=== PATIENT | female | born 2000 | race African-American/Black ===

== ENCOUNTER 2022-08-03 16:10 | Emergency (ER) | payer SELFPAY ==
--- OUTSIDE RECORDS SUMMARY | 2022-08-03 16:14 | XMS REPORT | Continuity of Care Document ---
:[address] [facility] t Address [address] [place] [id number] Care Team Providers Name Role Phone PCP, PATIENT DOES NOT HAVE A Primary Care Physician JOSSELYN Hazel Attending Clinician Unavailable , DR BALTAZAR Attending Clinician Unavailable JE Attending Clinician Unavailable DEE DEE, DR ANNE Attending Clinician Unavailable DR DELANEY KHAN Admitting Clinician Unavailable JE Admitting Clinician Unavailable DEE DEE, DR ANNE Admitting Clinician Unavailable Payers Payer Name Policy Type Policy Number Effective Date Expiration Date S ource Problems This patient has no known problems. Allergies, Adverse Reactions, Alerts Allergy Allergy Status Severity Reaction(s) Onset Inactive Treating Comm ents Source Name Type Date Date Clinician NO KNOWN Drug Active [facility] ALLERGIE Class ity of [facility] No Known DA Active [facility] s Social History Smoking Status Start Date Stop Date Source Never Smoker [place] [facility] Medications Ordered Filled Start Stop Current Ordering Indication Dosage Frequency Signature Comments Components Source Medication Medication Date Date Medication? Clinician (SIG) Name Name azithromyci azithromyci No azithromyc [place] 250 mg n 250 mg in 250 mg da tablet TAKE tablet TAKE tablet [facility] 2 TABLETS 2 TABLETS TAKE 2 al (500 MG) BY (500 MG) BY TABLETS Health ORAL ROUTE ORAL ROUTE (500 MG) Outre[facility] ONCE DAILY ONCE DAILY BY ORAL h FOR 1 DAY FOR 1 DAY ROUTE ONCE Program THEN 1 THEN 1 DAILY FOR TABLET (250 TABLET (250 1 DAY THEN MG) BY ORAL MG) BY ORAL 1 TABLET ROUTE ONCE ROUTE ONCE (250 MG) DAILY FOR 4 DAILY FOR 4 BY ORAL DAYS DAYS ROUTE ONCE DAILY FOR 4 DAYS Vital Signs Vital Name Observation Time Observation Value Comments Source Height 2020-12-05 02:34:00 160.02 CM Weight 2020-12-05 02:34:00 41.73 KG BP Diastolic 2019-06-16 00:00:00 72 mm[Hg] [place] [facility] Height 2019-06-16 00:00:00 62 [in_i] [facility] BMI (Body Mass 2019-06-16 00:00:00 16.8 kg/m2 [place] [facility] BP Systolic 2019-06-16 00:00:00 108 mm[Hg] [place] [facility] Body Weight 2019-06-16 00:00:00 91.8 [lb_av] [facility] Weight 2019-04-03 14:38:00 44.45 KG Height 2019-04-03 14:38:00 160.02 CM Procedures This patient has no known procedures. 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 [facility] specimen [code = Outreach Pr ogram COVID-19 RNA, QL, curtain mender-PCR, unspecified specimen] Encounters Start End Encounter Admission Attending Care Care Encounter Source Date/Time Date/Time Type Type Clinicians Facility Department ID 2021-10-27 2021-10-27 Emergency X [facility] ERT [id number] [facility] 14:49:00 16:34:00 JOSSELYN mckinney [facility] 2020-12-05 2020-12-05 Outpatient Chilo KHAN [facility] ECC [id number] 02:32:00 04:04:00 WASIM [facility] 2019-08-26 2019-08-26 Outpatient AMBREEN_FAR MEHOP MEHOP [id number] [place] 12:54:00 12:54:00 HANA [id number] [facility] 2019-07-22 2019-07-22 Outpatient AMBREEN_FAR MEHOP MEHOP [id number] [place] 12:45:00 12:45:00 HANA [id number] [facility] 2019-06-17 2019-06-17 Outpatient AMBREEN_FAR MEHOP MEHOP [id number] [place] 01:32:00 01:32:00 HANA [id number] [facility] 2019-06-16 2019-06-16 Outpatient AMBREEN_FAR MEHOP MEHOP [id number] [place] 04:28:00 04:28:00 HANA [id number] [facility] 2019-06-16 2019-06-16 [facility] [place] - [id number] M [place] 00:00:00 00:00:00 Akiko Cheatham MD: [id number] [facility] [employer] [place] copy [place] HOP - [facility] [address], Out[place] [facility] [place] Program [id number] , Ph. 2019-04-03 2019-04-03 Outpatient Chilo FUNEZ DAYANA [facility] [id number] 14:32:00 15:40:00 [facility] 2016-04-08 2016-04-08 Outpatient MHIE MHIE [id number] 15:15:00 15:15:00 06 rosey Mendes 2015-12-06 2015-12-06 Outpatient MHIE MHIE [id number] [facility] 09:15:00 09:15:00 08 rosey Mendes 2015-12-05 2015-12-05 Outpatient MHIE MHIE [id number] [facility] 14:15:00 14:15:00 07 rosey Mendes 2015-10-02 2015-10-02 Outpatient MHIE MHIE [id number] [facility] 10:00:00 10:00:00 04 rosey Mendes 2015-08-01 2015-08-01 Outpatient MHIE MHIE [id number] [facility] 14:00:00 14:00:00 05 rosey Mendes 2015 2015 Outpatient MHIE MHIE [id number] [facility] 13:30:00 13:30:00 02 rosey Mendes 2015-06-28 2015-06-28 Outpatient [facility] [id number] [facility] 14:45:00 14:45:00 03 rosey Mendes Results Test Description Test Time Test Comments Results Result Comments Source SARS-CoV (RAPID ANTIGEN) WH 2020-12-05 03:40:00 Test Item Value Reference Range Interpretation Comme nts SARS-CoV (ANTIGEN) (test code = NEGATIVE NEGATIVE COVAG) COVID AG (test code = COVAGC) This test has been marketed under the FDA Emergency Use Authorization (EUA) to meet challenges of the COVID-19 pandemic. The validation standards normally enforced by the FDA and the [employer] of [employer] (CAP) are more stringent than those required for this test. Therefore, the result should be interpreted with caution and close attention to other clinical and epidemiological data GENERAL CHEMISTRY 13 *OW* [id number] 03:08:00 Test Item Value Reference Range Interpretation Comments GLUCOSE (test code = GGUL) 87 mg/dL 73-118 BUN (test code = GBUN) 10 mg/dL 7-22 CREATININE (test code = GCRE) 0.5 mg/dL 0.6-1.2 L URIC ACID (test code = GUA) 2.9 mg/dL 2.2-6.6 CALCIUM (test code = GCL+) 9.5 mg/dL 8.0-10.3 ALBUMIN (test code = GALB) 4.7 g/dL 3.5-5.5 PROTEIN (test code = GTP) 7.7 g/dL 6.4-8.1 ALT (test code = GALT) 19 U/L 10-47 AST (test code = TATIANA) 33 U/L 11-38 ALK PHOS (test code = GALP) 40 U/L 42-141 L BILI TOTAL (test code = GTBIL) 0.8 mg/dL 0.2-1.6 GGT (test code = GGGT) 11 U/L 5-65 AMYLASE (test code = GAMY) 49 U/L 14-97 Mety[employer]te 8 Panel *OW* [id number] 03:07:00 Test Item Value Reference Range Interpretation Comments GLUCOSE (test code = GGUL) 87 mg/dL 73-118 BUN (test code = GBUN) 10 mg/dL 7-22 CREATININE (test code = GCRE) 0.5 mg/dL 0.6-1.2 L CK TOTAL (test code = GCK) 67 U/L 30-190 SODIUM (test code = GNA+) 137 mmol/L 128-145 POTASSIUM (test code = GK+) 3.4 mmol/L 3.6-5.1 L CHLORIDE (test code = GCL-) 109 mmol/L 98-108 H TCO2 (test code = GTC02) 24 mmol/L 18-33 URINE OW2020-12-05 03:02:00 Test Item Value Reference Range Interpretation Comments PREG UR (test code = PGU) Negative NEGATIVE URINALYSIS W/O MICROSCOPICOW2020-12-05 03:02:00 Test Item Value Reference Range Interpretation Comments COLOR (test code = Yellow YELLOW COLU) CLARITY (test code = Clear CLEAR CLA) GLUCOSE UR (test Negative NEGATIVE code = UA GLUCOSE) BILI UR (test code = Negative NEGATIVE BILE) KETONES UR (test 4+ NEGATIVE A code = MIKAYLA) SP GRAVITY (test >=1.030 1.005-1.030 code = SPGR) PH UR (test code = 7.0 4.5-8.0 PH) PROTEIN UR (test Negative NEGATIVE code = PU) NITRITE UR (test Negative NEGATIVE code = NITRITE) UROBIL UR (test code 4.0 E.U./dL = GUROQ) UROBIL UR (test code UROBILINOGEN = GUROQC) REFERENCE RANGE 0.2 - 1.0 EU/dL BLOOD UR (test code Negative NEGATIVE = UA BLOOD) LEUK ES UR (test Negative NEGATIVE code = LEUK) CBC (INCLUDES AUTOMATED DIFFERENTIAL) *2020-12-05 03:01:00 Test Item Value Reference Range Interpretation Comments WBC (test code = WBC) 8.3 10\S\3/uL 4.5-11.0 RBC (test code = RBC) 4.26 10\S\6/uL 4.30-5.70 L HGB (test code = HBG) 12.3 g/dL 12.0-15.5 HCT (test code = HCT) 39.0 % 35.0-44.0 MCV (test code = MCV) 91.6 fL 81.0-99.0 MCH (test code = MCH) 28.9 pg 27.0-31.0 MCHC (test code = MCHC) 31.5 g/dL 32.0-36.0 L RDW (test code = RDW) 12.6 % 11.5-14.5 PLT (test code = PLT) 201 10\S\3/uL 130-400 MPV (test code = OMPV) 8.7 fL 6.2-10.2 NEUTROP # (test code = NE#) 5.1 10\S\3/uL 1.6-8.0 LYMPH # (test code = LY#) 2.7 10\S\3/uL 1.1-3.5 MID # (test code = GMID#) 0.6 10\S\3/uL 0.0-1.1 GRAN % (test code = GRA%) 60.9 % 35.0-73.0 LYMPH % (test code = GLY%) 32.0 % 20.0-55.0 MID % (test code = GMID%) 7.1 % 0.0-10.0 rapid flu (A+B)2019-06-16 14:34:29 Test Item Value Reference Range Interpretation Comments Flu (test code = Flu) [facility] *OW*2019-04-03 15:36:38Xray Chest 2 viewsLocation Code: [id number]: None availableCLINICAL HISTORY: Cough.Findings: The cardiomediastinal silhouette is within normal limits. No evidence ofpulmonary edema, pleural effusionor consolidation is visualized.IMPRESSION: No plain radiographic evidence of an acute cardiopulmonary abnormalityTROPONIN I OW2019-04-03 15:16:00 Test Item Value Reference Range Interpretation Comments TROPONIN I (test code = A84) <0.050 ng/mL 0.000-0.050 MetyLyte 8 Panel *OW* [id number] 15:16:00 Test Item Value Reference Range Interpretation Comments GLUCOSE (test code = GGUL) 103 mg/dL 73-118 BUN (test code = GBUN) 10 mg/dL 7-22 CREATININE (test code = GCRE) 0.7 mg/dL 0.6-1.2 CK TOTAL (test code = GCK) 69 U/L 30-190 SODIUM (test code = GNA+) 137 mmol/L 128-145 POTASSIUM (test code = GK+) 3.3 mmol/L 3.6-5.1 L CHLORIDE (test code = GCL-) 98 mmol/L 98-108 TCO2 (test code = GTC02) 27 mmol/L 18-33 DRUGS OF ABUSE*OW*2019-04-03 15:11:00 Test Item Value Reference Range Interpretation Comments DRUG SCRN (test code URINE DRUG SCREEN = HDOA) This is an unconfirmed screening result and should not be used for non-medical purposes PHENCYCLID (test Negative NEGATIVE code = GPCP) BENZODIAZE (test Negative NEGATIVE code = GBZO) COCAINE (test code = Negative NEGATIVE GCOC) AMPHETAMIN (test Negative NEGATIVE code = GAMP) THC (test code = Positive NEGATIVE A GTHC) OPIATES (test code = Negative NEGATIVE MARA) BARBITURAT (test Negative NEGATIVE code = GBAR) TCA (test code = Negative NEGATIVE GTCA) DOAH (test code = URINE DRUG DOAH) SCREEN CUT OFF VALUES Amphetamines 1000 ng/mL Barbituates 300 ng/mL Benzodiazepines 300 ng/mL Cocaine 300 ng/mL Opiates 300 ng/mL Phencyclidine 25 ng/mL THC 50 ng/mL Tricyclic Antidepressants 1000 ng/mL URINE OW2019-04-03 15:04:00 Test Item Value Reference Range Interpretation Comments PREG UR (test code = PGU) Negative NEGATIVE INFLUENZA A AND B OW2019-04-03 15:02:00 Test Item Value Reference Range Interpretation Comments INFLUENZ A (test code = INFA) NEGATIVE NEGATIVE INFLUENZ B (test code = INFB) POSITIVE NEGATIVE A URINALYSIS W/O MICROSCOPICOW2019-04-03 14:59:00 Test Item Value Reference Range Interpretation Comments COLOR (test code = Yellow YELLOW COLU) CLARITY (test code = SLT HAZY CLEAR A CLA) GLUCOSE UR (test Negative NEGATIVE code = UA GLUCOSE) BILI UR (test code = 1+ NEGATIVE A BILE) KETONES UR (test 3+ NEGATIVE A code = MIKAYLA) SP GRAVITY (test >=1.030 1.005-1.030 code = SPGR) PH UR (test code = 5.5 4.5-8.0 PH) PROTEIN UR (test 1+ NEGATIVE A code = PU) NITRITE UR (test Negative NEGATIVE code = NITRITE) UROBIL UR (test code 1.0 E.U./dL = GUROQ) UROBIL UR (test code UROBILINOGEN = GUROQC) REFERENCE RANGE 0.2 - 1.0 EU/dL BLOOD UR (test code 2+ NEGATIVE A = UA BLOOD) LEUK ES UR (test Negative NEGATIVE code = LEUK) CBC (INCLUDES AUTOMATED DIFFERENTIAL) *2019-04-03 14:56:00 Test Item Value Reference Range Interpretation Comments WBC (test code = WBC) 4.0 10\S\3/uL 4.5-13.0 L RBC (test code = RBC) 4.23 10\S\6/uL 4.30-5.70 L HGB (test code = HBG) 12.2 g/dL 12.0-15.5 HCT (test code = HCT) 38.2 % 35.0-44.0 MCV (test code = MCV) 90.2 fL 81.0-99.0 MCH (test code = MCH) 28.8 pg 27.0-31.0 MCHC (test code = MCHC) 31.9 g/dL 32.0-36.0 L RDW (test code = RDW) 13.4 % 11.5-14.5 PLT (test code = PLT) 140 10\S\3/uL 130-400 MPV (test code = OMPV) 8.7 fL 6.2-10.2 NEUTROP # (test code = NE#) 2.6 10\S\3/uL 1.6-8.0 LYMPH # (test code = LY#) 1.0 10\S\3/uL 1.1-3.5 L MID # (test code = GMID#) 0.4 10\S\3/uL 0.0-1.1 GRA % (test code = GRA%) 64.8 % 35.0-73.0 LYMPH % (test code = GLY%) 24.6 % 20.0-55.0 MID % (test code = GMID%) 10.6 % 0.0-10.0 H
[2022-08-03] MEDS ORDERED: DICYCLOMINE HCL 20 MG/2 ML AMP IM ONE (16:49)
[2022-08-03] MEDS ORDERED: NA CHLORIDE 0.9% 1,000 ML ONE (16:49)
[2022-08-03] MEDS ORDERED: ONDANSETRON 4 MG/2 ML VIAL ONE (16:49)
[2022-08-03 17:08] LABS: Absolute Lymphocytes (CBC) 0.3 K/uL (0.7-4.9); Hematocrit 42.2 % (36.0-45.0); Lymphocytes % 3.5 % (15.3-44.8); MCV 89.5 fL (80-100); MPV 9.2 fL (7.6-11.3); RBC Red Blood Cell Count 4.71 M/uL (3.86-4.86)
[2022-08-03 17:23] LABS: Albumin 4.8 g/dL (3.4-5.0); Potassium 3.5 mEq/L (3.5-5.1)
[2022-08-03 17:47] LABS: Specific Gravity 1.026 (1.005-1.030); Urine Bacteria None Seen /HPF (<20); Urine Bilirubin NEGATIVE (Negative); Urine Blood Negative (Negative); Urine Clarity Clear (Clear); Urine Color Light-Yellow (Yellow); Urine Glucose NEGATIVE (Negative); Urine Mucus Slight /HPF (None Seen); Urine Protein TRACE (Negative); Urine RBC None Seen /HPF (None Seen); Urine Urobilinogen Normal (Normal); Urine pH 6.5 (5.0-7.0)
[2022-08-03] MEDS ORDERED: METOCLOPRAMIDE 10 MG/2mL INJ ONE (18:16)
[2022-08-03] MEDS ORDERED: DIPHENHYDRAMINE 50 MG/ML VIAL ONE (18:16)
[2022-08-03] MEDS ORDERED: NA CHLORIDE 0.9% 0 ML ONE (18:17)
--- NOTE | 2022-08-03 19:16 | EDPHYS ---
Physician Documentation [facility] Name: Kathrin Gayle Age: 22 yrs Sex: Female : 2000 Arrival Date: 08/03/2022 Time: 16:10 Bed 17 Private MD: ED Physician Raza Christie HPI: 08/03 17:03 This 22 yrs old Black Female presents to ER via Ambulatory with complaints of Abdominal rt Pain, Nausea/Vomiting. 17:03 Patient presents to the ED with nausea, vomiting, diarrhea, generalized abdominal pain rt starting about 8 AM this morning. Patient went to bed feeling well. Patient states that the symptoms have been waxing and waning. She denies other acute complaints at this time. Symptoms are moderate in severity, aching nature, nonradiating, no other aggravating or alleviating factors.. 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 - Social history:: Smoking status: Patient uses street drugs, marijuana. - Family history:: not pertinent. ROS: 17:03 Constitutional: Negative for fever, chills, and weight loss, Eyes: Negative for injury, rt pain, redness, and discharge, Cardiovascular: Negative for chest pain, palpitations, and edema, Respiratory: Negative for shortness of breath, cough, wheezing, and pleuritic chest pain, MS/Extremity: Negative for injury and deformity, Skin: Negative for injury, rash, and discoloration, Neuro: Negative for headache, weakness, numbness, tingling, and seizure, Psych: Negative for depression, anxiety, suicide ideation, homicidal ideation, and hallucinations. 17:03 Abdomen/GI: Positive for abdominal pain, nausea, vomiting, and diarrhea. Exam: 17:03 Constitutional: This is a well developed, well nourished patient who is awake, alert, rt and in no acute distress. Head/Face: Normocephalic, atraumatic. Chest/axilla: Normal chest wall appearance and motion. Nontender with no deformity. No lesions are appreciated. Cardiovascular: Regular rate and rhythm with a normal S1 and S2. No gallops, murmurs, or rubs. Normal PMI, no JVD. No pulse deficits. Respiratory: Lungs have equal breath sounds bilaterally, clear to auscultation and percussion. No rales, rhonchi or wheezes noted. No increased work of breathing, no retractions or nasal flaring. Skin: Warm, dry with normal turgor. Normal color with no rashes, no lesions, and no evidence of cellulitis. MS/ Extremity: Pulses equal, no cyanosis. Neurovascular intact. Full, normal range of motion. Neuro: Awake and alert, GCS 15, oriented to person, place, time, and situation. Cranial nerves II-XII grossly intact. Motor strength 5/5 in all extremities. Sensory grossly intact. Cerebellar exam normal. Normal gait. Psych: Awake, alert, with orientation to person, place and time. Behavior, mood, and affect are within normal limits. 17:03 Abdomen/GI: Mild nonfocal tenderness diffusely without rebound, guarding, distention. Vital Signs: 16:19 BP 114 / 88; Pulse 109; Resp 16; Temp 98.5; Pulse Ox 100% on R/A; Weight 45.36 kg; iw Height 5 ft. 2 in. ; Pain 7/10; 17:07 BP 111 / 75; Pulse 88; Resp 14; Pulse Ox 100% on R/A; vg1 18:04 BP 112 / 64; Pulse 83; Resp 16; Pulse Ox 100% ; vg1 16:19 Body Mass Index 18.29 (45.36 kg, 157.48 cm) iw 16:19 Pain Scale: Adult iw MDM: 16:23 Patient medically screened. rt 19:16 Differential diagnosis: gastritis, pancreatitis, appendicitis, gastroenteritis. Data rt reviewed: vital signs, nurses notes, lab test result(s), radiologic studies. Consideration of Admission/Observation Escalation of care including admission/observation considered. I considered the following discharge prescriptions or medication management in the emergency department Medications were administered in the Emergency Department. See MAR. Test considered but Not performed: CT: Stable labs, no focal abdominal tenderness, resolution of symptoms with medications, do not believe that CT scan is indicated at this time. The patient was informed to return if she develops worsening symptoms for recheck of possible appendicitis although I do believe that appendicitis is very unlikely at this time.. Counseling: I had a detailed discussion with the patient and/or guardian regarding: the historical points, exam findings, and any diagnostic results supporting the discharge/admit diagnosis, lab results, radiology results, the need for outpatient follow up, to return to the emergency department if symptoms worsen or persist or if there are any questions or concerns that arise at home. 08/03 16:31 Order name: CBC with Diff; Complete Time: 17:48 rt 08/03 16:31 Order name: CMP; Complete Time: 17:48 rt 08/03 16:31 Order name: Lipase; Complete Time: 17:48 rt 08/03 16:31 Order name: UAM; Complete Time: 17:48 rt 08/03 16:56 Order name: Test, Serum; Complete Time: 17:48 rt 08/03 18:02 Order name: PO challenge; Complete Time: 18:48 vg1 Administered Medications: 17:00 Drug: NS 0.9% IV 1000 ml Route: IV; Rate: 1 bolus; Site: right antecubital; vg1 18:49 Follow up: IV Status: Completed infusion; IV Intake: 1000ml vg1 17:01 Drug: Ondansetron IVP 4 mg Route: IVP; Site: right antecubital; vg1 18:05 Follow up: Response: No adverse reaction; No change in condition vg1 17:05 Drug: Dicyclomine IM 20 mg Route: IM; Site: right gluteus; vg1 18:05 Follow up: Response: No adverse reaction; Pain is decreased vg1 18:13 Not Given (Other Intervention Used): NS 0.9% IV 100 ml IV at bolus once vg1 18:16 Drug: diphenhydrAMINE IVP 25 mg Route: IVP; Site: right antecubital; vg1 18:48 Follow up: Response: No adverse reaction vg1 18:18 Drug: metoCLOPramide IVP 10 mg {Note: placed in NS bolus with 200 mL remaining.} Route: vg1 IVP; Site: right antecubital; 18:49 Follow up: Response: No adverse reaction; Nausea is decreased vg1 Disposition Summary: 08/03/22 19:15 Discharge Ordered Location: Home rt Problem: new rt Symptoms: are resolved rt Condition: Stable rt Diagnosis - Nausea with vomiting, unspecified rt Followup: rt - With: Private Physician - When: 2 - 3 days - Reason: Discharge Instructions: - Discharge Summary Sheet rt - Nausea and Vomiting, Adult rt Forms: - Medication Reconciliation Form rt - Thank You Letter rt - Antibiotic Education rt - Prescription Opioid Use rt Prescriptions: - Reglan 10 mg Oral Tablet - take 1 tablet by ORAL route every 6 hours take 30 minutes before meals and at rt bedtime; 20 tablet; Refills: 0, Product Selection Permitted Signatures: Dispatcher [employer] Haylie Stuart RN RN iw Marla Irvin RN RN vg1 Raza Christie MD MD rt Corrections: (The following items were deleted from the chart) 17:04 16:32 Test, Urine+UC.LAB.BRZ ordered. EDAR EDMS
--- NOTE | 2022-08-03 19:16 | ER ---
Nurse's Notes [facility] Name: Kathrin Gayle Age: 22 yrs Sex: Female : 2000 Arrival Date: 08/03/2022 Time: 16:10 Bed 17 Private MD: Diagnosis: Nausea with vomiting, unspecified Presentation: 08/03 16:19 Chief complaint: Patient states: vomiting since 0800 today , having really bad stomach iw pains, and feels weak , pain is in lower abd radiating to back and sides , denies urinary s/s, reports one episode of diarrhea. Coronavirus screen: At this time, the client does not indicate any symptoms associated with coronavirus-19. Ebola Screen: Patient negative for fever greater than or equal to 101.5 degrees Fahrenheit, and additional compatible Ebola Virus Disease symptoms Patient denies exposure to infectious person. Patient denies travel to an Ebola-affected area in the 21 days before illness onset. No symptoms or risks identified at this time. Risk Assessment: Do you want to hurt yourself or someone else? Patient reports no desire to harm self or others. Onset of symptoms was August 03, 2022. 16:19 Method Of Arrival: Ambulatory iw 16:19 Acuity: MARIAM 3 iw HEAD OF MUSIC: 16:20 LMP 07/08/2022 iw Historical: - Allergies: 16:20 No Known Allergies; iw - Home Meds: 16:20 None [Active]; iw - PMHx: 16:20 None; iw - PSHx: 16:20 None; iw - Immunization history:: Adult Immunizations not immunized, . - Social history:: Smoking status: Patient uses street drugs, marijuana. - Family history:: not pertinent. Screenin:07 [facility] ED Fall Risk Assessment (Adult) History of falling in the last 3 months, vg1 including since admission No falls in past 3 months (0 pts). Abuse screen: Denies threats or abuse. Denies injuries from another. Nutritional screening: No deficits noted. Tuberculosis screening: No symptoms or risk factors identified. Assessment: 17:07 General: Appears in no apparent distress. uncomfortable, Behavior is calm, cooperative. vg1 Pain: Complains of pain in right lower quadrant and left lower quadrant Pain currently is 8 out of 10 on a pain scale. Pain began this morning. Neuro: Level of Consciousness is awake, alert, obeys commands, Oriented to person, place, time, situation, Moves all extremities. Respiratory: Airway is patent Respiratory effort is even, unlabored. GI: Bowel sounds present X 4 quads. Abdomen is tender to palpation in right lower quadrant and left lower quadrant Reports nausea, vomiting, since this morning 0800. : No signs and/or symptoms were reported regarding the genitourinary system. Musculoskeletal: Circulation, motion, and sensation intact. 18:04 Reassessment: Patient appears in no apparent distress at this time. No changes from vg1 previously documented assessment. Patient and/or family updated on plan of care and expected duration. Pain level reassessed. Patient is alert, oriented x 3, equal unlabored respirations, skin warm/dry/pink. 18:04 Pain: Pain currently is 5 out of 10 on a pain scale. vg1 19:12 Reassessment: Patient appears in no apparent distress at this time. Patient and/or vg1 family updated on plan of care and expected duration. Pain level reassessed. Patient is alert, oriented x 3, equal unlabored respirations, skin warm/dry/pink. Patient denies pain at this time. Vital Signs: 16:19 BP 114 / 88; Pulse 109; Resp 16; Temp 98.5; Pulse Ox 100% on R/A; Weight 45.36 kg; iw Height 5 ft. 2 in. ; Pain 7/10; 17:07 BP 111 / 75; Pulse 88; Resp 14; Pulse Ox 100% on R/A; vg1 18:04 BP 112 / 64; Pulse 83; Resp 16; Pulse Ox 100% ; vg1 16:19 Body Mass Index 18.29 (45.36 kg, 157.48 cm) iw 16:19 Pain Scale: Adult iw ED Course: 16:15 Patient arrived in ED. ts1 16:20 Triage completed. iw 16:20 Arm band placed on. iw 16:22 Raza Christie MD is Attending Physician. rt 16:40 Marla Irvin, RN is Primary Nurse. vg1 16:57 CBC with Diff Sent. mm9 16:57 CMP Sent. mm9 16:57 Lipase Sent. mm9 16:58 Initial lab(s) drawn, by md, sent to lab. Inserted saline lock: 22 gauge in right mm9 antecubital area, using aseptic technique. Blood collected. 16:59 Patient has correct armband on for positive identification. Bed in low position. Call mm9 light in reach. Side rails up X 1. Adult w/ patient. Warm blanket given. Pulse ox on. NIBP on. 17:00 Test, Serum Sent. mm9 17:07 No provider procedures requiring assistance completed. vg1 17:35 UAM Sent. mm9 17:35 Urine collected: clean catch specimen, cloudy. mm9 19:21 IV discontinued, intact, bleeding controlled, No redness/swelling at site. Pressure vg1 dressing applied. Administered Medications: 17:00 Drug: NS 0.9% IV 1000 ml Route: IV; Rate: 1 bolus; Site: right antecubital; vg1 18:49 Follow up: IV Status: Completed infusion; IV Intake: 1000ml vg1 17:01 Drug: Ondansetron IVP 4 mg Route: IVP; Site: right antecubital; vg1 18:05 Follow up: Response: No adverse reaction; No change in condition vg1 17:05 Drug: Dicyclomine IM 20 mg Route: IM; Site: right gluteus; vg1 18:05 Follow up: Response: No adverse reaction; Pain is decreased vg1 18:13 Not Given (Other Intervention Used): NS 0.9% IV 100 ml IV at bolus once vg1 18:16 Drug: diphenhydrAMINE IVP 25 mg Route: IVP; Site: right antecubital; vg1 18:48 Follow up: Response: No adverse reaction vg1 18:18 Drug: metoCLOPramide IVP 10 mg {Note: placed in NS bolus with 200 mL remaining.} Route: vg1 IVP; Site: right antecubital; 18:49 Follow up: Response: No adverse reaction; Nausea is decreased vg1 Medication: 17:07 VIS not applicable for this client. vg1 Intake: 18:49 IV: 1000ml; Total: 1000ml. vg1 Outcome: 19:15 Discharge ordered by . rt 19:20 Discharged to home ambulatory, with friend. vg1 19:20 Condition: good 19:20 Discharge instructions given to patient, Instructed on discharge instructions, follow up and referral plans. medication usage, Demonstrated understanding of instructions, follow-up care, medications, Prescriptions given X 1. 19:21 Patient left the ED. vg1 Signatures: Haylie Billings RN RN iw Garcia, Victoria, RN RN vg1 Bebe Tran mm9 Raza Christie MD MD rt Zenia Celeste PAS PAS ts1 Corrections: (The following items were deleted from the chart) 18:04 17:07 BP 111 / 75; Pulse 14bpm; Resp 88bpm; Pulse Ox 100% RA; vg1 vg1
[2022-08-03 19:47] VITALS: TEMP 98.5; O2SAT 100
[2022-08-03 19:50] VITALS: BP 112/64
== END 2022-08-03 19:21 | disposition home or self-care (01) ==
LOC: ER 16:10
DX: R11.2 Nausea with vomiting, unspecified (principal); R10.84 Generalized abdominal pain; R19.7 Diarrhea, unspecified
CPT/HCPCS: 36415; 80053; 81001; 83690; 84703; 85025; J0500; J1200; J2405; J2765; J7030

== ENCOUNTER 2024-02-24 20:55 | Emergency (ER) | payer OTHER, SELFPAY ==
--- NOTE | 2024-02-24 22:26 | RAD REPORT ---
EXAM:OB Limited . CLINICAL HISTORY: with abdominal pain. 34 weeks EGA, baby no moving TECHNIQUE: Limited OB ultrasound performed. FINDINGS: A single cephalic fetus is identified. Heart rate is normal 159 BPM. Estimated age is 34 weeks 0 days. Amniotic fluid index is normal measuring 11 cm. Largest pocket measures 7.1 cm. Placenta appears grade 1 anterior. Cervix measures 4 cm and is closed. IMPRESSION: Single live intrauterine gestation as detailed. No acute abnormality detected.
--- NOTE | 2024-02-24 22:35 | ER ---
Nurse's Notes [facility] Name: Kathrin Gayle Age: 23 yrs Sex: Female : 2000 Arrival Date: 02/24/2024 Time: 20:55 Bed 10 Private MD: Diagnosis: at 34-week gestation , Discomfort of Presentation: 02/23 21:19 Chief complaint: Patient states: has not felt baby all day. Last time I felt baby move tm6 was last night. Coronavirus screen: Client denies travel out of the [place] in the last 14 days. Ebola Screen: Patient negative for fever greater than or equal to 101.5 degrees Fahrenheit, and additional compatible Ebola Virus Disease symptoms Patient denies exposure to infectious person. Patient denies travel to an Ebola-affected area in the 21 days before illness onset. No symptoms or risks identified at this time. Initial Sepsis Screen: Does the patient meet any 2 criteria? No. Patient's initial sepsis screen is negative. Does the patient have a suspected source of infection? No. Patient's initial sepsis screen is negative. Risk Assessment: Do you want to hurt yourself or someone else? Patient reports no desire to harm self or others. Onset of symptoms was February 24, 2024. 21:19 Method Of Arrival: Ambulatory tm6 21:19 Acuity: MARIAM 3 tm6 Triage Assessment: 21:19 General: Appears in no apparent distress. Behavior is calm, cooperative. Pain: Denies tm6 pain. EENT: No signs and/or symptoms were reported regarding the EENT system. Neuro: Level of Consciousness is awake, alert, obeys commands, Oriented to person, place, time, situation. Cardiovascular: Patient's skin is warm and dry. Respiratory: Airway is patent Respiratory effort is even, unlabored, Respiratory pattern is regular, symmetrical. GI: Abdomen is round. : Reports not feeling baby move all day. Derm: No signs and/or symptoms reported regarding the dermatologic system. Musculoskeletal: No signs and/or symptoms reported regarding the musculoskeletal system. 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 - Infectious Disease History:: Denies. - Social history:: Smoking status: Patient denies any tobacco usage or history of. - Family history:: not pertinent. Screenin:47 [facility] ED Fall Risk Assessment (Adult) History of falling in the last 3 months, kl including since admission No falls in past 3 months (0 pts) Confusion or Disorientation No (0 pts) Intoxicated or Sedated No (0 pts) Impaired Gait Yes (1 pt) Mobility Assist Device Used No (0 pt) Altered Elimination No (0 pt) Score/Fall Risk Level 0 - 2 = Low Risk Oriented to surroundings, Maintained a safe environment. Abuse screen: Denies threats or abuse. Nutritional screening: No deficits noted. Tuberculosis screening: No symptoms or risk factors identified. Assessment: 22:47 General: Appears in no apparent distress. Behavior is calm, cooperative. Pain: Denies kl pain. Neuro: No deficits noted. Neuro: No deficits noted. Cardiovascular: No deficits noted. Respiratory: No deficits noted. GI: No deficits noted. No signs and/or symptoms were reported involving the gastrointestinal system. Vital Signs: 21:18 BP 119 / 77; Pulse 89; Resp 18; Temp 98.4(O); Pulse Ox 99% on R/A; MAP 89 mmHg; Weight tm6 49.9 kg; Height 5 ft. 3 in. ; Pain 0/10; 21:18 Body Mass Index 19.49 (49.90 kg, 160.02 cm) tm6 21:18 Pain Scale: Adult tm6 Miguel Angel Coma Score: 12/12 22:13 Eye Response: spontaneous(4). Motor Response: obeys commands(6). Verbal Response: sp4 oriented(5). Total: 15. ED Course: 02/23 20:59 Patient arrived in ED. jj6 21:14 Rikki Burrell MD is Attending Physician. sp4 21:19 Triage completed. tm6 21:19 Arm band placed on right wrist. tm6 22:17 US OB Limited In Process Unspecified. EDMS 22:48 No provider procedures requiring assistance completed. Patient did not have IV access kl during this emergency room visit. Administered Medications: No medications were administered Medication: 22:48 VIS not applicable for this client. kl Outcome: 22:35 Discharge ordered by . sp4 22:48 Discharged to home ambulatory, kl 22:48 Condition: stable 22:48 Discharge instructions given to patient, Instructed on discharge instructions, follow up and referral plans. Demonstrated understanding of instructions, follow-up care, 22:48 Patient left the ED. kl Signatures: Dispatcher [employer] EDLisy Tran, RN RN Janki Solitarioj6 Rikki Burrell MD MD sp4 James Hale RN RN tm6
--- NOTE | 2024-02-24 22:35 | EDPHYS ---
Physician Documentation [facility] Name: Kathrin Montoya Age: 23 yrs Sex: Female : 2000 Arrival Date: 02/24/2024 Time: 20:55 Bed 10 Private MD: ED Physician Rikki Burrell HPI: 02/23 21:14 This 23 yrs old Black Female presents to ER via Unassigned with complaints of 34 WKS sp4 GESTATION, HASN'T FELT BABY MOVE ALL DAY. 02/24 22:13 Patient is 22-year-old female at 34 weeks 0 days EGA presents with concern for sp4 baby not moving. Patient reports she has not felt any movement since yesterday evening. Denied any other symptoms denied vaginal bleeding or fluid leak. 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 - Infectious Disease History:: Denies. - Social history:: Smoking status: Patient denies any tobacco usage or history of. - Family history:: not pertinent. ROS: 02/24 22:13 Constitutional: Negative for fever, chills, and weight loss, sp4 All other systems are negative, Exam: 22:13 Constitutional: This is a well developed, well nourished patient who is awake, alert, sp4 and in no acute distress. Head/Face: Normocephalic, atraumatic. Eyes: Pupils equal round and reactive to light, extra-ocular motions intact. Lids and lashes normal. Conjunctiva and sclera are not injected. Cornea within normal limits. Periorbital areas with no swelling, redness, or edema. ENT: Nares patent. No nasal discharge, no septal abnormalities noted. Tympanic membranes are normal and external auditory canals are clear. Oropharynx with no redness, swelling, or masses, exudates, or evidence of obstruction, uvula midline. Mucous membranes moist. Neck: Trachea midline, no thyromegaly or masses palpated, and no cervical lymphadenopathy. Supple, full range of motion without nuchal rigidity, or vertebral point tenderness. Chest/axilla: Normal chest wall appearance and motion. Nontender with no deformity. No lesions are appreciated. Cardiovascular: Regular rate and rhythm with a normal S1 and S2. No gallops, murmurs, or rubs. Normal PMI, no JVD. No pulse deficits. Respiratory: Lungs have equal breath sounds bilaterally, clear to auscultation and percussion. No rales, rhonchi or wheezes noted. No increased work of breathing, no retractions or nasal flaring. Abdomen/GI: Soft, with normal bowel sounds. No distension or tympany. No guarding or rebound. No evidence of tenderness throughout. Positive for gravid uterus Back: No spinal tenderness. No costovertebral tenderness. Skin: Warm, dry with normal turgor. Normal color with no rashes, no lesions, and no evidence of cellulitis. MS/ Extremity: Pulses equal, no cyanosis. Neurovascular intact. Full, normal range of motion. Neuro: Awake and alert, GCS 15, oriented to person, place, time, and situation. Cranial nerves II-XII grossly intact. Motor strength 5/5 in all extremities. Sensory grossly intact. Psych: Awake, alert, with orientation to person, place and time. Behavior, mood, and affect are within normal limits Vital Signs: 02/23 21:18 BP 119 / 77; Pulse 89; Resp 18; Temp 98.4(O); Pulse Ox 99% on R/A; MAP 89 mmHg; Weight tm6 49.9 kg; Height 5 ft. 3 in. ; Pain 0/10; 21:18 Body Mass Index 19.49 (49.90 kg, 160.02 cm) tm6 21:18 Pain Scale: Adult tm6 Miguel Angel Coma Score: 02/24 22:13 Eye Response: spontaneous(4). Motor Response: obeys commands(6). Verbal Response: sp4 oriented(5). Total: 15. MDM: 02/23 21:15 Medical Screening Exam initiated sp4 22:29 ED course: Name: KATHRIN MONTOYA Acct Number: [id number] :2000 Age:23 sp4 Sex:F Ord Phys: Rikki Burrell MD Unit Number: [id number] [place] [facility] [address]: NONE Status: REG ER ER Exam Date: 02/24/24 EXAM:OB Limited . CLINICAL HISTORY: with abdominal pain. 34 weeks EGA, baby no moving TECHNIQUE: Limited OB ultrasound performed. FINDINGS: A single cephalic fetus is identified. Heart rate is normal 159 BPM. Estimated age is 34 weeks 0 days. Amniotic fluid index is normal measuring 11 cm. Largest pocket measures 7.1 cm. Placenta appears grade 1 anterior. Cervix measures 4 cm and is closed. IMPRESSION: Single live intrauterine gestation as detailed. No acute abnormality detected. . 02/24 22:13 Differential diagnosis: [place], delivery of infant, Data reviewed: vital signs, sp4 nurses notes, radiologic studies, ultrasound. Consideration of Admission/Observation Escalation of care including admission/observation considered. 02/23 21:15 Order name: OB Limited sp4 Administered Medications: No medications were administered Disposition: 22:15 Chart complete. sp4 Disposition Summary: 02/24/24 22:35 Discharge Ordered Notes: Ultrasound today does not see any problems Location: Home sp4 Problem: new sp4 Symptoms: have improved sp4 Condition: Stable sp4 Diagnosis - at 34-week gestation , Discomfort of sp4 Followup: sp4 - With: Private Physician - When: 7 - 10 days - Reason: Recheck today's complaints Discharge Instructions: - Discharge Summary Sheet sp4 - Activity Restriction During sp4 Forms: - Patient Portal Instructions sp4 Signatures: Dispatcher [employer] Rikki Palacios MD MD sp4 James Hale RN RN tm6
[2024-02-24 22:52] VITALS: BP 119/77; TEMP 98.4; O2SAT 99
== END 2024-02-24 22:48 | disposition home or self-care (01) ==
LOC: ER 20:55
DX: O36.8190 Decreased fetal movements, unspecified trimester, not applicable or unspecified (principal); O26.893 Other specified pregnancy related conditions, third trimester; Z3A.34 34 weeks gestation of pregnancy
CPT/HCPCS: 76815; 99282